=== PATIENT | female | born 1960 | race Caucasian/White ===

== ENCOUNTER 2016-08-09 13:44 | Observation (INO) | payer OTHER ==
[~2016-08-09] VITALS: Ht 167.6 cm; Wt 97.1 kg
[2016-08-09 15:24] LABS: RED BLOOD COUNT 5.13 M/UL (4.00-5.10); WHITE BLOOD COUNT 9.2 K/UL (4.5-11.0)
[2016-08-09 15:45] LABS: BUN/CREATININE RATIO 24 (0-10)
[2016-08-10] MEDS ORDERED: LISINOPRIL20 MG PO (01:35)
[2016-08-10 05:13] LABS: RED BLOOD COUNT 5.11 M/UL (4.00-5.10); WHITE BLOOD COUNT 7.4 K/UL (4.5-11.0)
[2016-08-10 05:41] LABS: BUN/CREATININE RATIO 24 (0-10)
[2016-08-10] MEDS ORDERED: ASPIRIN EC81 MG PO (19:17)
[2016-08-10] MEDS ORDERED: PRILOSEC OTC20 MG PO (19:18)
== END 2016-08-10 19:45 | disposition home or self-care (01) ==
LOC: ER1 13:44 → M/S 17:57 → ZEROF 17:57 → M/S 08-10 01:24
PROVIDERS: Student in an Organized Health Care Education/Training Program; ADMIT Internal Medicine Infectious Disease
DX: R07.89 Other chest pain (principal); I10 Essential (primary) hypertension; Z79.82 Long term (current) use of aspirin; Z79.899 Other long term (current) drug therapy; Z90.49 Acquired absence of other specified parts of digestive tract; Z82.49 Family history of ischemic heart disease and other diseases of the circulatory system; E66.9 Obesity, unspecified; Z68.34 Body mass index [BMI] 34.0-34.9, adult
CPT/HCPCS: ECHO; 36415; 71020; 78452; 80053; 80061; 82550; 82553; 83735; 83874; 83880; 84484; 85025; 93005; 93017; 93306; 99285; A9502; G0378